=== PATIENT | female | born 1950 | race Caucasian/White ===

== ENCOUNTER 2023-10-25 15:47 | Outpatient (CLI) | payer MEDICARE, SELFPAY ==
--- NOTE | 2023-10-25 13:15 | DI.RAD_ITS ---
Exam(s) XR STANDING ALIGNMENT EXAM: XR STANDING ALIGNMENT CLINICAL HISTORY: eval alignment pre-TKA. TECHNIQUE: 2D digital imaging was performed. Four images were obtained. COMPARISON: CR XR KNEE 3V LT from 12/22/2022 FINDINGS: BONES: The hips are well maintained. In the right knee there is [id number]-[id number] narrowing in the me dial femoral tibial joint space. Spurring is seen both medially and laterally. In the left knee the re is marked narrowing of the lateral femoral tibial joint. There osteophytes seen both medially and laterally. The ankles are well maintained.The right lower extremity is approximately 1 cm longer th an the left lower extremity. SOFT TISSUE: Normal. IMPRESSION: Osteoarthritis of the knees, left greater than right. DATA REPOSITORY: RADIATION DOSE DELIVERED:
== END 2023-10-25 15:48 | disposition home or self-care (01) ==
LOC: DIORS 15:48
PROVIDERS: PCP Nurse Practitioner Family; Referring Provider Nurse Practitioner Family; Visit Provider Student in an Organized Health Care Education/Training Program
DX: M17.12 Unilateral primary osteoarthritis, left knee (principal); M21.062 Valgus deformity, not elsewhere classified, left knee
CPT/HCPCS: 99204; 77073

== ENCOUNTER 2023-11-19 01:42 | Outpatient (CLI) | payer MEDICARE, SELFPAY ==
[2023-11-19 12:26] LABS: HCT 45.3 % (36.0-46.0); HGB 15.1 g/dL (11.2-15.7); MCHC 33.3 % (32.0-36.0); MCV 90 fL (80-95); MPV 9.2 fL (8.0-11.0); Platelet Count 368 10^3/uL (130-400); RBC 5.03 10^6/uL (3.93-5.22); RDW 13.6 % (11.7-14.6); WBC 8.08 10^3/uL (4.4-10.8)
[2023-11-19 13:21] LABS: Anion Gap 7.9 mmol/L (3-11); BUN 24 mg/dL (7-18); CO2 30.1 mmol/L (21.0-32.0); CREATININE 1.2 mg/dL (0.55-1.02); Calcium 10.1 mg/dL (8.5-10.1); Chloride 102 mmol/L (98-107); Estimated GFR 47.21 (mL/min/1.73m2); Glucose 127 mg/dL (74-106); Potassium 3.9 mmol/L (3.5-5.1); Sodium 140 mmol/L (136-145)
== END 2023-11-19 01:43 | disposition home or self-care (01) ==
LOC: LBO 01:42
PROVIDERS: PCP Nurse Practitioner Family; Visit Provider Student in an Organized Health Care Education/Training Program
DX: M21.062 Valgus deformity, not elsewhere classified, left knee (principal); M17.12 Unilateral primary osteoarthritis, left knee; Z01.818 Encounter for other preprocedural examination
CPT/HCPCS: 36415; 80048; 85027

== ENCOUNTER 2023-11-30 07:28 | Observation (INO) | payer MEDICARE, SELFPAY ==
[2023-11-30] VITALS (55 sets, daily range): BP systolic 99–176; BP diastolic 42–101; PULSE 49–76; RESP 12–22; TEMP 25.9–36.5; O2SAT 94–100; BMI 42.3
[2023-11-30] MEDS: Celecoxib 200 MG CAP 400 MG PO (07:49)
[2023-11-30] MEDS: Acetaminophen 500 MG TAB 1000 MG PO ×3 (07:49→20:56)
[2023-11-30] MEDS: Gabapentin 300 MG CAP PO ×2 (07:49→20:56)
--- NOTE | 2023-11-30 08:11 | W.ANESPRE ---
General Info Date of Service Date Performed: 11/30/23 Height: 5 ft 4 in Weight: 111.9 kg Body Mass Index (BMI): 42.3 Surgical Procedure: Operation Date: 11/30/23 09:10 Proposed Procedure Side Surgeon p Knee Total Arthroplasty w/OrthAlign Left Jamar Tucker MD Meds Allergies and Home Medications Allergies Allergy/AdvReac Type Severity Reaction Status Date / Time No Known Allergies Allergy Verified 11/30/23 07:28 Home Medication ?Medication ?Instructions ?Recorded chlorthalidone 25 mg tablet 25 mg PO DAILY 08/05/23 lisinopril 30 mg tablet 30 mg PO DAILY 08/05/23 lovastatin 20 mg tablet 20 mg PO DAILY 08/05/23 acetaminophen 650 mg 650 mg PO ONCE 11/30/23 tablet,extended release (Arthritis Pain Relief (acetaminophen) ER) Current Visit Medications: Current Medications Generic Name Dose Route Start Last Admin Trade Name Freq PRN Reason Stop Dose Admin Acetaminophen 1,000 mg 11/30/23 06:00 11/30/23 07:49 Acetaminophen 500 Mg Tab PO 11/30/23 23:59 1,000 mg PREOP KATHERIN Administration Acetaminophen 1,000 mg 11/30/23 08:30 Acetaminophen 500 Mg Tab PO 12/30/23 08:29 TID KATHERIN Aspirin 81 mg 11/30/23 08:30 Aspirin E.C. 81 Mg Tabec PO 12/30/23 08:29 BID KATHERIN Celecoxib 400 mg 11/30/23 06:00 11/30/23 07:49 Celecoxib 200 Mg Cap PO 11/30/23 23:59 400 mg PREOP KATHERIN Administration Celecoxib 200 mg 11/30/23 08:30 Celecoxib 200 Mg Cap PO 12/30/23 08:29 BID KATHERIN Dexamethasone 4 mg 11/30/23 08:30 Dexamethasone 4 Mg Tab PO 12/01/23 08:31 DAILY KATHERIN Docusate Sodium 100 mg 11/30/23 07:28 Docusate Sodium 100 Mg Cap PO 12/30/23 07:27 BID PRN PRN Constipation Gabapentin 300 mg 11/30/23 06:00 11/30/23 07:49 Gabapentin 300 Mg Cap PO 11/30/23 23:59 300 mg PREOP KATHERIN Administration Hydromorphone HCl 0.5 mg 11/30/23 07:28 Hydromorphone 2 Mg/Ml Syr IVP 12/30/23 07:27 Q2H PRN PRN Ringer's Solution 1,000 mls @ 80 mls/hr 11/30/23 06:00 IV 11/30/23 23:59 INFUSION KATHERIN Cefazolin Sodium/Dextrose 2 gm in 50 mls @ 100 mls/hr 11/30/23 06:00 Ancef Duplex IVPB 11/30/23 23:59 PREOP KATHERIN Tranexamic Acid/Sodium Chloride 1,000 mg in 100 mls @ 600 mls/hr 11/30/23 06:00 IVPB 11/30/23 23:59 PREOP KATHERIN Cefazolin Sodium/Dextrose 1 gm in 50 mls @ 100 mls/hr 11/30/23 08:00 Ancef Duplex IVPB 12/01/23 00:29 Q8H KATHERIN IV Miscellaneous Supplies 1 each 11/30/23 06:00 Iv Access IV 11/30/23 23:59 DIRECTED KATHERIN Ondansetron HCl 4 mg 11/30/23 07:28 Ondansetron 4 Mg/2 Ml Vial IVP 12/30/23 07:27 Q6H PRN PRN Nausea Oxycodone HCl 0 mg 11/30/23 07:28 Oxycodone 5 Mg Tab PO 12/30/23 07:27 Q3H PRN PRN Pain Pantoprazole Sodium 40 mg 11/30/23 07:30 Pantoprazole 40 Mg Tabcr PO 12/30/23 07:29 DAILY@0730 KATHERIN Polyethylene Glycol 17 gm 11/30/23 07:28 Polyethylene Glycol 3350 17 Gm Packet PO 12/30/23 07:27 BID PRN PRN Constipation Sodium Chloride 0 ml 11/30/23 06:00 Normal Saline Flush 10 Ml Syr IV 11/30/23 23:59 PRN PRN Sodium Chloride 0 ml 11/30/23 06:00 Normal Saline 10 Ml Vial IJ 11/30/23 23:59 DIRECTED PRN Sterile Water 0 ml 11/30/23 06:00 Water,Injection,Sterile 10 Ml Vial IJ 11/30/23 23:59 DIRECTED PRN PFSH Active Problems Active Problems: Problem Status Onset Code 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 Unilateral primary osteoarthritis, left knee Acute M17.12 Obesity Chronic E66.9 Hyperlipidemia Acute E78.5 Medical History Medical History History of echocardiogram Hypertensive disorder Chronic constipation Surgical History Surgical History Status post hysterectomy History of arthroscopic knee surgery Left Tobacco Smoking/Tobacco Use Status: Former Tobacco Use Alcohol Alcohol Intake: current Alcohol intake frequency: holidays/special occasions only Alcohol type: other Substance Use Substance use: Never Substance use type: does not use Details: alcohol: t-5, one beer Vital Signs and Lab Results Vital Signs Most Recent Vital Signs in EMR: Most Recent Vital Signs Temp Pulse Resp BP Pulse Ox 36.5 C 58 L 16 176/53 H 99 11/30/23 07:38 11/30/23 07:38 11/30/23 07:38 11/30/23 07:38 11/30/23 07:38 Lab Results Blood Type / Crossmatch: No Data to Display Complete Blood Count: White Blood Count 8.08 10^3/uL (4.4-10.8) 11/19/23 12:00 Red Blood Count 5.03 10^6/uL (3.93-5.22) 11/19/23 12:00 Hemoglobin 15.1 g/dL (11.2-15.7) 11/19/23 12:00 Hematocrit 45.3 % (36.0-46.0) 11/19/23 12:00 Platelet Count 368 10^3/uL (130-400) 11/19/23 12:00 Complete Metabolic Panel: Sodium 140 mmol/L (136-145) 11/19/23 12:00 Potassium 3.9 mmol/L (3.5-5.1) 11/19/23 12:00 Chloride 102 mmol/L (98-107) 11/19/23 12:00 Carbon Dioxide 30.1 mmol/L (21.0-32.0) 11/19/23 12:00 BUN 24 mg/dL (7-18) H 11/19/23 12:00 Creatinine 1.2 mg/dL (0.55-1.02) H 11/19/23 12:00 Est GFR (CKD-EPI 2020) 47.21 (mL/min/1.73m2) 11/19/23 12:00 Calcium 10.1 mg/dL (8.5-10.1) 11/19/23 12:00 Glucose 127 mg/dL (74-106) H 11/19/23 12:00 Liver Function Panel: No Data to Display Coagulation Panel: No Data to Display Cardiac Panel: No Data to Display Arterial Blood Gas: No Data to Display Venous Blood Gas: No Data to Display Pancreas Panel: No Data to Display Thyroid Panel: No Data to Display Infectious Disease: No Data to Display Blood Cultures: No Data to Display Toxicology Panel: No Data to Display Anesthesia Assessment and Plan Anesthesia History Personal History: No History of Anesthesia Complications Family History: No Family History of Anesthesia Complications Exercise Tolerance Exercise Tolerance: Metabolic Equivalents>4 Pertinent Negatives Pertinent Negatives: No Symptoms of GERD, No Major Cardiovascular Symptoms or Complaints, No Major Pulmonary Symptoms or Complaints and No History of CVA/TIA Cardiac & Pulmonary Exam Cardiac Exam: Normal S1/S2 Heart Sounds Pulmonary Exam: Clear Bilateral Breath Sounds Implantable Cardiac Device Does patient have a Pacemaker or an ICD?: No Airway Exam Known Difficult Airway: No Mallampati Class: 1 Mouth Opening: Normal (> 3cm) Thyromental Distance: Greater than 3 cm Neck Range of Motion: Full ROM Neck Circumference: Normal Teeth Condition: Removable Dentures/Plates Upper and Removable Dentures/Plates Lower ASA Classification ASA Score: ASA 3 Emergency Case?: No NPO Status NPO Status: NPO Clears >2 hours, Solids >8 hours Anesthesia Plan Resuscitation Status: Full Code Anesthesia Technique: Spinal Anesthesia Airway Planned: Natural Airway Pain Management: Surgeon and patient request nerve block Monitors Used: Standard Monitors
[2023-11-30] MEDS: Lactated Ringers 1,000 ML 80 ML IV (08:15)
--- NOTE | 2023-11-30 09:16 | ROE_ITS ---
Date of service: 11/30/23 Time of Service: 09:16 Operative Note Operative Note DATE OF PROCEDURE: 11/30/23 PRE-OP DIAGNOSIS: Left Knee Osteoarthritis POST-OP DIAGNOSIS: same PROCEDURE: Left Total Knee Replacement with Intraoperative Navigation SURGEON: Jamar Tucker CERTIFIED NURSING ASSISTANT INSTRUCTOR: Edith Gasca ANESTHESIA TYPE: Spinal Refer to Anesthesia Record ESTIMATED BLOOD LOSS: 150 PATHOLOGY: none sent TOURNIQUET TIME: 0 COMPLICATIONS: None Patient was transported to: PACU Patient's condition: stable Implants: 1. Depuy Attune Cementless Cruciate Retaining Femoral Component, Size 5 2. Depuy Attune Cementless Fixed Bearing Tibial Component, Size 4 3. Depuy Attune 5x8 CR/FB Poly 4. Depuy Attune Patellar Component, Size 35 Indications: I have seen Olya in clinic for symptoms of LEFT knee arthritis, confirmed with radiographic findings. Olya has exhausted nonoperative methods and was having significant limitations in daily function and desired better function and less pain. I discussed the technical details of a knee replacement. I explained the risks of the procedure to include, but not limited to, bleeding, infection, pain, stiffness, fracture, damage to nerves and vessels, damage to muscles and tendons, loosening, need for repeat procedure, blood clot and cardiopulmonary demise. Despite these risks, Petrona elected to proceed. Findings: There was significant signs of arthritis throughout the knee involving all 3 compartments with a valgus deformity. Procedure Description: Olya was greeted in the preoperative holding area where the correct side was identified and marked. The consent was reviewed with the patient and signed. The history and physical was updated. All questions were answered. Preoperative mediacations were administered: Acetaminophen 1000mg, Celebrex 400mg, and Gabapentin 300mg. An adductor canal block was then administered by the anesthesia team in the PACU. She was taken back to the operating room. A spinal anesthestic was then administered. The patient was placed into the supine position on the operating room table. A nonsterile tourniquet was placed high onto the leg. Posts were placed for positioning during the procedure. All bony prominences were well padded. Prophylactic antibiotics in the form of Cefazolin were administered. 1g of Tranxemic Acid was given intravenously within 30 minutes of incision. The left leg was then prepped with Chloraprep and draped in a standard fashion with impervious stockinette. A second prep with Chloraprep was performed prior to application of Iodine impregnated skin protection. A timeout to confirm correct identity, side and site, procedure, allergies, anesthesia, and medical concerns was performed. With the knee in some flexion, a midline incision was made overlying the knee. Full thickness skin flaps were raised once the extensor mechanism was encountered. These were raised medially and laterally. Any bleeding was controlled with electrocautery. Once the extensor mechanism was fully exposed, a medial parapatellar arthrotomy was performed in a flexed position. All bleeding from the arthrotomy and the geniculate arteries was coagulated. A medial subperiosteal peel was performed with electrocautery to the midcoronal plane. The fat pad was removed while keeping the patellar tendon protected. The anterior distal femur synovium was removed for later visualization. The ACL and PCL were resected and the anterior horn of the lateral meniscus was transected. The knee was then flexed with the patella everted. Large osteophytes from the tibia were removed. Large osteophytes from the femur were removed. A single starting pin was then placed 1cm anterior to the PCL insertion and the notch in the direction of the femoral head. The OrthoAlign device was applied over the pin. It was oriented to be in line with the epicondylar axis and the trochlear groove. It was then pinned into place. The navigation computer was then turned on and calibrated. The distal femur cut was set at 0 degrees varus and 3.5 degrees flexion. The distal femur cutting guide then was positioned for a 9mm cut. The distal femur was cut with an oscillating saw while protecting the soft tissues. The tibia was then addressed. The OrthoAlign device was placed over the tibial tubercle and medial tibia and secured into position. Once again, OrthoAlign was calibrated and then set for a 0 degree varus cut and 5 degrees of posterior slope. With this locked into position, the cut thickness stylus was used to a ssess cut thickness. The lateral side, most involved side, was set for a 4mm cut. This was then held in position and pinned into place with 2 additional pins and a cross pin for stability. The medial and lateral collateral ligaments were protected and the cut was performed. With this completed, it was assessed and noted to be of appropriate dimensions. The guide and OrthoAlign was removed. A spacer block was inserted and the knee was brought into extension to ensure enough space was present. . The Orthoalign gap balancing device was then placed in extension. This was used to ensure that the ligaments were properly balanced with up to 2 to 3 mm laxity laterally compared medially. The extension gap was measured as 18mm. The knee was then brought into 90 degrees of flexion and the ligament search marketing specialist was once again placed. Under the same amount of force the flexion gap was measured. The Attune specific jig was placed and the flexion gap was made to match the extension gap. The femur was then sized as a size 5. The 4-in-1 cutting guide was the placed. An divya wing was used to confirm appropriate position of the anterior cut to avoid notching. This cutting guide was ensured to be flush on the cut surface and then pinned into place with headed pins. While protecting the soft tissues, quad tendon, and collateral ligaments, the anterior and posterior cuts were performed with a saw. The central two pins were removed and the posterior and anterior chamfers were cut next. The notch-cutting guide was placed. This was pinned to lateralize the femoral component as much as possible while keeping it flush on the cut surface. This was then pinned into position. A saw was used to make the notch cut. A rasp smoothed the cut surfaces. The medial and lateral menisci were removed. A trial femoral component was then inserted, impacted down to the cut surfaces, and the lug holes were drilled. A provisional trial tibial component was placed and the knee was brought through range of motion. The polyethylene was trialed until there was good flexion and extension with excellent stability to the medial and lateral collaterals. The patella was tracking without thumbs. A size 8mm polyethylene component provided the best range of motion and stability with less than 2mm gapping with medial and lateral stress and full extension without significant hyperextension. The tibial cut surface was fully exposed. The tibia was then sized as a 4. The tibia had been previously marked during trialing to correspond to the center of the tibial component to help with rotation. The trial was aligned to this mackenzie, approximately rotated to the medial 1/3rd of the tibial tubercle. The trial was pinned into place. The tibia was prepared with a reamer and a keel punch and lug holes. The knee was then brought into extension and the patella was measured as 25mm. Using the patellar clamp and cut guide, this was resected to a flat surface with at least 13mm of thickness remaining. The size 35 patella fit the best. This was oriented and then clamped into position. The lugs were drilled. The trial components were removed. The final components were opened on the back table. The periosteal and capsular tissues, especially posteriorly, around the knee were then systematically injected with a periarticular cocktail consisting of 246mg of Ropivacaine, 0.5mg of Epinephrine, 0.08mg of Clonidine, and 30mg of Ketorolac, diluted to 100cc. On the back table, with the implants opened, the cement was mixed. One batch of high viscosity cement was prepared with vacuum assistance. After the cement was ready a small amount was placed on the cut surface of the patella and the patellar button was clamped into position and held. While the cement was harde emily, the cementless knee components were placed. Starting with the tibial component, the tibia was subluxed anteriorly and the lug holes of the component were lined up. The tibia was then impacted with an impactor and mallet until the tibial component was in contact with the tibia. Then, the femoral component was inserted. The lug holes were aligned and the component was impacted into position. The final polyethylene component was inserted. The knee was irrigated with Surgiphor Betadine solution. This was allowed to sit in the knee for 3 minutes and then it was thoroughly irrigated out with saline. After the cement had finally cured, approximately 15min, the clamp was removed from the patella and the knee was taken through range of motion. The patella was tracking with a no-thumbs technique. The capsule was then reapproximated with a No. 1 Vicryl at multiple locations. The capsule was finally closed with a No. 2 Stratafix, barbed suture. Deep tissues were then reapproximated with 0 Vicryl and 2-0 Vicryl. The skin was closed with a running 3-0 Monocryl in a subcuticular fashion. This was reinforced with skin glue. A Mepilex silver dressing was applied along with a [id number] SENG wrap. A CryoCuff was applied. Olya was transferred to the hospital bed without difficulty an suffering no apparent complication. Olya has a good prognosis. Physical therapy will start today and without restrictions, weight-bearing as tolerated. Aspirin 81mg BID will be used for DVT prophylaxis.
[2023-11-30] MEDS: ceFAZolin 2 GM/50 ML BAG IVPB (09:23)
[2023-11-30] MEDS: TRANEXAMIC ACID/SOD. CHL. 1,000 MG/100 ML BAG 600 MG IVPB (09:27)
--- NOTE | 2023-11-30 09:46 | W.ANESNERVE ---
Nerve Block Single Injection Procedure Date and Time Date Performed: 11/30/23 Procedure Start: 08:40 Location Where Procedure Performed Procedure Location: Day Surgery Unit Reason Performed: Postoperative Analgesia Requesting Provider: Jamar Tucker Timeout Performed Timeout Performed: Yes Monitoring Used ECG, Blood Pressure, SpO2 and See EMR for corresponding vital signs Sterility Sterility: Hand Hygiene, Surgical Cap, Surgical Mask, Sterile Gloves and Chlorhexidine Sedation Given During Procedure Sedation Given (Indicate Dose Given): No Sedation given Patient Mental Status Patient Mental Status: Awake Nerve Block 1st Nerve Block: Laterality: Left Block Type: Adductor Canal Ultrasound Image Saved?: Yes Needle / Catheter Used: 120mm SonoPlex II Local Anesthetic Bolus (Indicate Dose Given): Lidocaine used for local infiltration of skin, Injected in 3-5ml increments after negative blood aspiration, Bupivacaine 0.25% Dose:: 10ml and Exparel Dose:: 10ml Additives (Indicate Dose Given): None Ultrasound: Sterile probe cover and gel used Nerve Stimulator: Not Used Paresthesia: None Procedure Tolerated: No Complications and Patient tolerated well Procedure Outcome: Successful Performed By: John Wells
[2023-11-30] MEDS: ePHEDrine 25 MG/5 ML Syringe IVP ×2 (11:57→12:11)
--- NOTE | 2023-11-30 12:43 | W.ANESPOSTOP ---
Postoperative Evaluation Date, Time and Location Date Performed: 11/30/23 Time Performed: 12:11 Patient Location: PACU Vital Signs Most Recent Imported Vital Signs: Most Recent Vital Signs Temp Pulse Resp BP Pulse Ox 36.4 C L 54 L 17 100/46 L 100 11/30/23 12:32 11/30/23 12:11 11/30/23 12:15 11/30/23 12:11 11/30/23 12:15 Pain Score Most Recent Pain Score: Most Recent Pain Score Pain Level 0 11/30/23 12:32 Assessment Mental Status: Awake (Alert & Oriented to Patient Baseline) Airway and Respiratory Function: Patent airway with normal (patient baseline) respiratory exam Cardiovascular Function: Hemodynamically Stable Hydration Status: Adequately Hydrated Nausea & Vomiting: No Nausea or Vomiting Pain: Pt. Denies Any Pain Peripheral Nerve Block: Regional nerve block not resolved at time of post operative discharge
--- NOTE | 2023-11-30 15:30 | PT.INIE ---
PT Notes Visit Reasons: Left knee DJD Physical Therapy Day Surgery Initial Evaluation Date: 11/30/2023 Referring Doctor: Dr. Tucker PT Orders: PT CONSULT: Assessment for discharge status post Ortho surgery Precautions: Weightbearing as tolerated left lower extremity Patient Profile/Admitting Diagnosis: Patient is a 73-year-old female admitted s/p elective left TKA secondary to OA on 11/30/2023. Postop uncomplicated. PMHX: HTN, constipation, hysterectomy, left knee arthroscopy Social History/Home Situation: Lives alone in a home with 4 steps to enter with 2 rails. She is independent with ADLs and ambulation without a device. Positive drives. Her son is supportive. Equipment Owned/DME: Patient has FWW at home she reports that her sons and declines to have a walker of her own Subjective: Patient reports apprehension regarding getting out of bed and standing on her leg for the first time. With encouragement from her nurse she is agreeable to participate in out of bed assessment. Objective: General Observation: Semireclined in bed with Cryo/Cuff in place to left knee IV left upper extremity, TEDS to RLE and Major wrap to left lower extremity Mental Status: A+ O x 4 Pain: 3/10 rest; 4/10 after ambulation and ROM ROM: Right Upper Extremity: WNL Left Upper Extremity: WNL Right Lower Extremity: WNL Left Lower Extremity: Hip and ankle WFL, Knee: 5-94 degrees Strength: Right Upper Extremity:5/5 Left Upper Extremity: 5/5 Right Lower Extremity:5/5 Left Lower Extremity: hip 3-/5, knee 3-/5, ankle 3/5; able to elicit quad set , (+) quad lag with short Range SLR Sensation: intact LLE except dorsum of left foot Bed Mobility/Transfers: Supine to sit min A Sit to standCGA with cues for hand placement Stand to sit CGA with cues for hand placement Bed to chair CGA with FWW Gait: ambulate with FWW CGA and cues for sequence 3 point gait pattern FWW, Left, right , Stairs: Unable Balance: Static Sitting:Normal Dynamic Sitting:good Static Standing: Fair + with FWW Dynamic Standing: Fair with FWW Special Tests: Mobility Limitations Standardized Measure [facility]-PAC 6 clicks Basic Mobility Inpatient Short Form: Raw Score:18 CMS Score: 46.58% disability Informed Consent/Education: Patient instructed in purpose of PT consult. Packet containing TKA exercise protocol has been given to patient. Education and training on initial set of exercises that can be done at home have been completed with patient. Assessment: Patient presents with clinical signs and symptoms consistent with current/admitting diagnoses that have resulted to mobility limitations, gait instability, generalized weakness, and impairment of motor control as demonstrated by the following impairment level findings: 1. Decreased strength to left knee major muscle groups 2. Impaired standing balance 3. Limitation of joint range of motion in left knee Impairments are contributing to the following functional limitations: 1. Inability to safely ambulate without assistive device 2. Increase completion time for mobility ADL performance 3. Increased fall risk Patient is assessed as a moderate complexity based on the following: History: 73-year-old female with impairment level findings, functional limitations, and past medical history as indicated above Examination: Demonstrable impairment in strength, balance, and mobility level with underlying impairments and functional limitations as documented above Presentation: stable Decision Making: low Goals: 1. Transfers with FWW supervision 2. ambulate with FWW supervision >50 feet 3. 4 stairs with 2 rails supervision 4. Independent HEP Plan of Care/Treatment Plan: PT evaluation and 1-2 treatment session only for functional mobility training using recommended AD and for HEP instruction. DISCHARGE RECOMMENDATIONS: Home with outpatient PT as scheduled TREATMENT CODE/TIME: 74792, [id number], [id number] Thank you for the opportunity to participate in the care of this patient. Please sign an return this page within 30 days if you agree with the above POC. Thank you! Physician Signature Date [facility]
[2023-11-30] MEDS: ceFAZolin 1 GM/50 ML BAG IVPB (18:03)
[2023-11-30] MEDS: Celecoxib 200 MG CAP PO (20:56)
[2023-11-30] MEDS: Aspirin E.C. 81 MG TABEC PO (20:56)
[2023-12-01] MEDS: ceFAZolin 1 GM/50 ML BAG IVPB ×2 (01:49→09:49)
[2023-12-01 03:23] VITALS: BP 109/65; PULSE 57; RESP 17; TEMP 35.5; O2SAT 97
[2023-12-01] MEDS: Pantoprazole 40 MG TABCR PO (07:48)
[2023-12-01] MEDS: Celecoxib 200 MG CAP PO (07:49)
[2023-12-01] MEDS: Chlorthalidone 25 MG TAB PO (07:49)
[2023-12-01] MEDS: Lisinopril 10 MG TAB 30 MG PO (07:50)
[2023-12-01] MEDS: Acetaminophen 500 MG TAB 1000 MG PO (07:51)
[2023-12-01] MEDS: Lovastatin 20 MG TAB PO (07:51)
[2023-12-01] MEDS: Docusate Sodium 100 MG CAP PO (07:52)
[2023-12-01] MEDS: Dexamethasone 4 MG TAB PO (07:52)
[2023-12-01] MEDS: Aspirin E.C. 81 MG TABEC PO (07:52)
[2023-12-01 08:17] VITALS: BP 92/58; PULSE 53; RESP 17; TEMP 35.5; O2SAT 95
--- NOTE | 2023-12-01 08:41 | PDOC.CMDIS ---
Date of service: 12/01/23 Time of Service: 08:41 LACE Index Scoring Tool Questions: Length of Stay (in days): 1 Was the patient admitted via the E.D.?: No E.D. Visits: 0 Answers: Total Score: 1 Risk of Readmission: Low Risk Care Management Discharge Plan Reason for Hospitalization: Left DJD Discharge Plan: Olya is discharged home via private vehicle with family. Pt will follow up with community providers, Ortho as scheduled and her discharge plan of care as instructed. Outpatient PT is recommended. No HH services are ordered. Patient/Family Education Needs: Review discharge instructions, limitations, medications and plan to follow up with community providers. Discuss ask me three. Services Needed at Discharge: Physical Therapy (Outpatient) SDOH Health Related Social Needs: No Data to Display
--- NOTE | 2023-12-01 09:42 | DSE_ITS ---
Date of service: 12/01/23 Time of Service: 09:42 DS: Diagnosis Discharge Diagnosis (1) Unilateral primary osteoarthritis, left knee: Status: Resolved Discharge Plan Disposition Patient Disposition: Home Condition: Good Discharge Details Reason For Visit: Left knee DJD Admit Date/Time: 11/30/23 07:28 Admit Provider: Jamar Tucker Attending Provider: Jamar Tucker Primary Care Provider: Armen Orellana Hospital Course Hospital Course: Patient was admitted to the medical/surgical floor following the procedure. The surgery was tolerated well without any notable medical, surgical, or anesthetic complications. Mobilization began postoperatively. She was voiding spontaneously. Vitals were stable. Physical therapy worked with the patient and was cleared for discharge home. No acute medical issues. Pain was controlled on oral regimen. Home Meds and New Rx's Prescriptions: New celecoxib [Celebrex] 200 mg capsule 200 mg PO BID PRNQty: 60 0RF Rx Instructions: Take one tablet twice daily for pain and inflammation aspirin 81 mg tablet,delayed release (DR/EC) 81 mg PO BID 30 Days Qty: 60 0RF acetaminophen 500 mg tablet 1,000 mg PO Q8H PRN Qty: 90 0RF Rx Instructions: Take two tablets up to every 8 hours as needed for pain dexamethasone 4 mg tablet 4 mg PO DAILY Qty: 1 0RF Rx Instructions: Take one tablet once daily for one day docusate sodium [Colace] 100 mg capsule 100 mg PO BID Qty: 30 0RF pantoprazole 40 mg tablet,delayed release (DR/EC) 40 mg PO DAILY 14 Days Qty: 14 0RF gabapentin 300 mg capsule 300 mg PO QHS Qty: 14 0RF Rx Instructions: Take one tablet at bedtime oxycodone 5 mg tablet 5 mg PO Q4H PRNQty: 18 0RF Rx Instructions: Take one tablet up to every 4 hours as needed for severe postoperative pain Continued chlorthalidone 25 mg tablet 25 mg PO DAILY lisinopril 30 mg tablet 30 mg PO DAILY lovastatin 20 mg tablet 20 mg PO DAILY Discontinued acetaminophen [Arthritis Pain Relief (acetam)] 650 mg tablet extended release 650 mg PO ONCE Patient Comments: pt. reports taking 1300mg Discharge Instructions Additional Instructions: Total Knee Discharge Instructions Activity: The most important activity is to walk and to work on gentle motion (both flexion and extension). You should try to take short walks a few times a day. It is important that when resting you work on keeping the knee straight. Avoid putting a pillow behind the knee as this will encourage flexion. Work on range of motion exercises as provided by Physical Therapy. - Start outpatient physical therapy within 2 weeks. - You should wear the SANYA hose on both legs for 2 weeks. You may remove these at night. You may also use any compression sock in place of the SANYA hose. - Utilize [employer] to review exercises, see videos on exercises and obtain basic information pertaining to your surgery and your recovery. Dressing: Remove the Major wrap by 2 days after your surgery and put on the SANYA stocking given to you from the hospital. Keep the surgical dressing (underneath the MAJOR wrap) in place for at least one week. After the first week it may be removed and replaced with light gauze and tape or nothing. The wound and dressing may get wet after 3 days but avoid soaking the dressing or otherwise it will need to be changed. Many people prefer covering the dressing with cling wrap (saran wrap) to minimize it from getting soaked. If it gets wet, just pat dry. If it starts to peel off then it will need to be changed. Medications: - You should take Tylenol and anti-inflammatory Celebrex as your primary pain control medications. If the Celebrex is too expensive or not covered, please call the office for another alternative (Advil/Ibuprofen or Naproxen/Aleve) - You have been prescribed a stronger pain medication Oxycodone for breakthrough pain, take as needed as prescribed. - You have also been prescribed a stomach acid reduction agent Pantoprozole to help reduce stomach acid and reflux. - You have been prescribed Gabapentin to take at night for restlessness and nerve pain. - You will be taking Aspirin 81mg twice a day for DVT prevention unless instructed otherwise. - You have also been prescribed Decadron to take to control post-operative nausea and pain. You will start this tomorrow. - If you have constipation you should take Colace (which has been prescribed) or Miralax (which is available [id number]). It takes most people 3-4 days to have a bowel movement. Follow-up: 2 weeks If you have any acute concerns or questions, please do not hesitate to contact the office at [phone]. You may contact Dr. Tucker with any questions after hours through the hospital at [phone] or on his cell phone at [phone]. Referrals: Jamar Tucker MD [ [facility] STAFF PHYSICIAN] - Activity:: Activity as Tolerated Equipment/Supplies:: Walker Diet:: As Tolerated Discharge Orders Discharge Orders: Discharge Order (Routine); Ordered 12/01/23 Ordered By: Jamar Tucker DS: Summary Time Spent with Patient providing and/or coordinating discharge services: Less than 30 minutes Status at Discharge Functional status at discharge: uses cane/walker Overall status at discharge: patient is progressing back to baseline Mental Status: mental status grossly normal Speech and Movement: speech and movement normal Mood: congruent mood Affect: normal affect Quality:SDOH Health Related Social Needs: No Data to Display Exam Narrative Exam Narrative: Sitting up in the chair. No acute distress. Alert and orient x 3. Evaluation of the left leg shows a clean dry and intact dressing. She is able to actively extend the left knee from a flexed position although with some weakness she extends to about 5 degrees of extension. No pain with range of motion passively. Intact ankle dorsiflexion, ankle plantarflexion, great toe extension, great toe flexion. Sensation intact to light touch over the deep and superficial nerve. Psych Mental Status: mental status grossly normal Speech and Movement: speech and movement normal Mood: congruent mood Affect: normal affect DS: Data Vitals/I&O Vitals and I&O: Vital Signs Temperature 97.7 F 11/30/23 07:38 Pulse 58 L 11/30/23 07:38 Pulse Rhythm Regular 11/30/23 07:38 Respiratory Rate 16 11/30/23 07:38 Respiratory Depth Normal 11/30/23 07:38 Blood Pressure 176/53 H 11/30/23 07:38 Pulse Oximetry 99 11/30/23 07:38 Oxygen Delivery Method Room Air 11/30/23 07:38 Oxygen Flow Rate 0 11/30/23 07:38 Pain Level 0 11/30/23 07:38 Intake & Output 11/29/23 11/29/23 11/30/23 11:59 23:59 11:59 Weight 246 lb 11.156 oz PFSH All Active Problems (Updated 11/30/23 @ 13:37 by Naveen Palm RN) History of total left knee replacement (Acute 11/30/23) Obesity (Chronic) Hyperlipidemia (Acute) Medical History (Updated 11/30/23 @ 13:37 by Naveen Palm RN) History of echocardiogram Hypertensive disorder Chronic constipation Surgical History (Updated 11/30/23 @ 13:37 by Naveen Palm RN) Status post hysterectomy History of arthroscopic knee surgery Left Social History Smoking/Tobacco Use Status: Former Tobacco Use Quit Date: 04/05/89 Smoking risk assessment performed?: Yes Alcohol Intake: current Alcohol Intake frequency: holidays/special occasions only Alcohol type: other Drug use: Never Substance use type: does not use Details: alcohol: t-5, one beer Housing: house Do you feel safe at home: Yes Do you feel safe in your relationship?: Yes Additional Social history: [employer]
--- NOTE | 2023-12-01 09:53 | PT.INTREAT ---
PT Notes Visit Reasons: Left knee DJD Inpatient Physical Therapy Treatment Note [facility] Date: 12/01/2023 PRECAUTIONS: Activity as tolerated SUBJECTIVE: Patient reports minimal sleep last night. She reports she used her Cryo/Cuff throughout the night. OBJECTIVE: Alert oriented female motivated to return home agreeable to participate. Cryo/Cuff in place ? PAIN: 3/10 left knee VITALS: ?92/58 asymptomatic Therapeutic Activities (51673h[]): Direct one-on-one instruction in dynamic activities to improve functional performance. ? BED MOBILITY/TRANSFERS? Supine-sit: Independent ? Sit-supine: Independent] ? Sit-stand: [Independent]? Stand-sit: [Independent] ? Bed-Chair: Independent with FWW] ? Chair-bed: Independent with FWW Provided skilled cues and instruction on performance and technique throughout. Gait Training (11333k8): Direct one-on-one instruction and skilled instruction in: [] employing an assistive device [] modified weight-bearing status [] movement sequencing [x] turning and movement with proper form [] Provided verbal cues for equipment management and technique [] Provided instruction in gait pattern [x] Patient education regarding pacing and breathing techniques to maximize activity tolerance? GAIT? Assistive Device: FWW ? Weight bearing: WBAT Assist: Supervision? Distance:?200 feet? Deviation: Slight lateral weight shift reduced knee flexion left,? STAIRS: 2 stairs with 2 rails supervision? Therapeutic Exercises (65521e4): Direct one-on-one instruction in therapeutic exercises to develop strength, endurance, range of motion and flexibility. ? Exercises 10 reps ? supine QS, heelslides, ankle pumps, SLR through shortened ROM seated LAQ, heelslide ? Provided skilled instruction in proper exercise performance Provided skilled manual cues to facilitate proper muscle recruitment and/or form: [] ASSESSMENT: Patient demonstrates safe technique with front wheel walker for functional transfers, and ambulation. She is supervised on the stairs with 2 rails. She demonstrates impaired knee flexion during ambulation. Range of motion left knee 0?95 AAROM in sitting. She has a front wheeled walker at home. Patient demonstrated all TherEX per TKA protocol. She is safe for discharge when medically appropriate. PLAN: cont PT for strengthening and functional mobility until discharge to home TREATMENT CODE/TIME: 94377/95177 ([id number]) DISCHARGE RECOMMENDATION: Home with outpatient PT as scheduled
== END 2023-12-01 11:25 | disposition home or self-care (01) ==
LOC: SUR 08:58 → MS 12:53
PROVIDERS: Admitting Provider Student in an Organized Health Care Education/Training Program; PCP Nurse Practitioner Family; Visit Provider Student in an Organized Health Care Education/Training Program
PROC: (CPT 27447; principal; 2023-11-30 09:00)
DX: M17.12 Unilateral primary osteoarthritis, left knee (principal); E78.5 Hyperlipidemia, unspecified; E66.9 Obesity, unspecified; Z68.41 Body mass index [BMI] 40.0-44.9, adult
CPT/HCPCS: 20985; 27447; 76942; 97110; 97116; 97162; 97530; C1776; C9290; G0378; J0665; J0690; J1100; J2001; J2250; J2371; J2401; J2405; J2704; J8540

== ENCOUNTER 2023-12-13 15:31 | Outpatient (CLI) | payer MEDICARE, SELFPAY ==
--- NOTE | 2023-12-13 12:45 | DI.RAD_ITS ---
Exam(s) XR KNEE LT 1V XR STANDING ALIGNMENT EXAM: XR STANDING ALIGNMENT CLINICAL HISTORY: 1ST POST OP S/P L TKA. TECHNIQUE: 2D digital imaging was performed. Standing AP views were performed from the pelvis throu gh the ankles. COMPARISON: CR XR STANDING ALIGNMENT from 10/25/2023 CR XR KNEE LT 1V from 12/13/2023 FINDINGS: BONES: No acute fracture is present. No bony destructive lesion is seen. Leg length discrepancy: No significant overall leg length discrepancy. JOINTS: Knees: A left total knee prosthesis has placed. Alignment appears satisfactory. No surround ing bony lucencies. Moderate narrowing of the medial femoral tibial joint space of the right knee. The ankle joints are unremarkable. The hip joints show mild degenerative changes. SOFT TISSUE: Normal. IMPRESSION: Moderate degenerative changes medial femoral tibial joint space of the right knee. Status post place ment of left knee prosthesis.. No significant leg length discrepancy. DATA REPOSITORY: RADIATION DOSE DELIVERED:
== END 2023-12-13 15:32 | disposition home or self-care (01) ==
LOC: DIORS 15:31
PROVIDERS: PCP Nurse Practitioner Family; Referring Provider Nurse Practitioner Family; Visit Provider Student in an Organized Health Care Education/Training Program
DX: Z96.652 Presence of left artificial knee joint (principal); Z47.1 Aftercare following joint replacement surgery
CPT/HCPCS: 73560; 77073

== ENCOUNTER → 2024-01-10 13:49 | Outpatient (BNVA) | payer MEDICARE, SELFPAY | PROVIDERS: PCP Nurse Practitioner Family; Referring Provider Nurse Practitioner Family; Visit Provider Student in an Organized Health Care Education/Training Program | DX: Z47.1 Aftercare following joint replacement surgery (principal); Z96.652 Presence of left artificial knee joint | CPT/HCPCS: 99024 ==

== ENCOUNTER → 2024-02-21 10:54 | Outpatient (BNVA) | payer MEDICARE, SELFPAY | PROVIDERS: PCP Nurse Practitioner Family; Referring Provider Nurse Practitioner Family; Visit Provider Student in an Organized Health Care Education/Training Program | DX: S86.112D Strain of other muscle(s) and tendon(s) of posterior muscle group at lower leg level, left leg, subsequent encounter (principal); X58.XXXD Exposure to other specified factors, subsequent encounter; Z96.652 Presence of left artificial knee joint | CPT/HCPCS: 99213 ==

== ENCOUNTER → 2024-04-10 10:30 | Outpatient (BNVA) | payer MEDICARE, SELFPAY | PROVIDERS: PCP Nurse Practitioner Family; Referring Provider Nurse Practitioner Family; Visit Provider Student in an Organized Health Care Education/Training Program | DX: M54.16 Radiculopathy, lumbar region (principal); S86.112D Strain of other muscle(s) and tendon(s) of posterior muscle group at lower leg level, left leg, subsequent encounter; X58.XXXD Exposure to other specified factors, subsequent encounter | CPT/HCPCS: 99215 ==

== ENCOUNTER 2024-05-03 02:30 | Outpatient (CLI) | payer MEDICARE, SELFPAY ==
--- NOTE | 2024-05-03 12:50 | DI.MRI_ITS ---
Exam(s) MR LUMBAR SPINE WO EXAM: MR LUMBAR SPINE WO CLINICAL HISTORY: LOW BACK PAIN, LT LUMBAR RADICULOPATHY,M54.16. TECHNIQUE: Multiplanar multisequence MRI of the Lumbar spine was performed. COMPARISON: No exams were available for comparison FINDINGS: Bones: The last intervertebral disc space is designated the L5/S1 level for the numbering purpose of this examination. Endplate osteophytes are seen at several levels of the lumbar spine. Alignment i s satisfactory. There are hemangioma seen in the T11 and L4 vertebral bodies. There are postsurgical changes of a prior left L5 laminectomy. Cord: The conus tip ends at the L1 level. It is of normal size and signal intensity. T12-L1: No disc herniations or bulges are present. No central spinal canal or neural foraminal stenos is. L1-2: No disc herniations or bulges are present. No central spinal canal or neural foraminal stenosis . L2-3: No disc herniations or bulges are present. No central spinal canal or neural foraminal stenosis . L3-4: There is a eccentric disc bulge laterally to the left. No significant central spinal canal fermin nosis is seen. There is mild left neural foraminal narrowing. No significant right neural foraminal stenosis is seen. L4-5: There is a mild diffuse disc bulge and a small central disc herniation. Facet arthropathy is p resent. Minimal narrowing of the central spinal canal is noted. Mild narrowing of the neural forame n is seen bilaterally, left greater than right. L5-S1: There is a mild diffuse disc bulge. There are degenerative changes of the facets. No signifi cant central spinal canal stenosis is present. No significant neural foraminal stenosis is seen. Soft tissues: The visualized SI joints and sacrum are well maintained. Bilateral renal cysts are seen . No follow-up is recommended. IMPRESSION: Multilevel degenerative changes in the lumbar spine. The findings do result in central spinal canal narrowing at L4-L5 and bilateral neural foraminal narrowing at this level. There is also mild narrow ing on the left at L3-L4. DATA REPOSITORY:
--- NOTE | 2024-05-03 13:50 | DI.MRI_ITS ---
Exam(s) MR LOWER EXTREMITY LT WO EXAM: MR LOWER EXTREMITY LT WO CLINICAL HISTORY: L LOWER LEG PAIN,STRAIN GASTROCENEMIUS MUSCLE LT LOW EXT,S86.112A TECHNIQUE: Multiplanar multisequence MRI was performed without intravenous contrast. COMPARISON: CR XR STANDING ALIGNMENT from 12/13/2023 FINDINGS: There is artifact from the patient's left total knee arthroplasty. BONES/JOINTS: Images about the knee are distorted secondary to the patient's total knee arthroplasty. Rounded areas are seen in the mid tibia which are isointense to the intramedullary fat on the T1 an d hypointense on the T2 weighted images. There is mild associated marrow edema. The cortex appears intact. No soft tissue mass is appreciated. The findings may represent a benign lesion such as a hemant ne infarct. MUSCULOTENDINOUS STRUCTURES: There is mild hyperintense signal seen on the T2 fat suppressed images i n both the medial and lateral gastrocnemius muscles. There is also mild increased signal seen in the adjacent soleus muscle. No intramuscular mass is seen. No abnormal fluid collection is seen within the muscles. There does appear to be very mild diffuse fatty atrophy of the muscles of the lower ex tremity. There is fusiform thickening of the midportion of the Achilles tendon which can be seen wit h a partial tear. SOFT TISSUES: Unremarkable. OTHER FINDINGS: None. IMPRESSION: 1. Mild hyperintense signal seen in both the medial lateral gastrocnemius muscle in the adjacent port ion of the soleus muscle. No intramuscular mass or fluid collection is seen. There is no distortion of the muscle fibers. This may represent a grade 1 muscle strain. 2. Fusiform thickening of the midportion of the Achilles tendon which can be seen with a partial tear . 3. Exam limited by artifact from the patient's total knee arthroplasty. DATA REPOSITORY:
== END 2024-05-03 02:50 ==
LOC: DI 02:30
PROVIDERS: PCP Nurse Practitioner Family; Visit Provider Student in an Organized Health Care Education/Training Program
DX: M54.16 Radiculopathy, lumbar region (principal); S86.112A Strain of other muscle(s) and tendon(s) of posterior muscle group at lower leg level, left leg, initial encounter; X58.XXXA Exposure to other specified factors, initial encounter
CPT/HCPCS: 72148; 73718

== ENCOUNTER → 2024-07-03 10:20 | Outpatient (BNVA) | payer MEDICARE, SELFPAY | PROVIDERS: PCP Nurse Practitioner Family; Referring Provider Nurse Practitioner Family; Visit Provider Student in an Organized Health Care Education/Training Program | DX: S86.112A Strain of other muscle(s) and tendon(s) of posterior muscle group at lower leg level, left leg, initial encounter (principal); X58.XXXA Exposure to other specified factors, initial encounter; Z96.652 Presence of left artificial knee joint | CPT/HCPCS: 99213 ==

== ENCOUNTER 2024-11-30 11:28 | Outpatient (CLI) | payer MEDICARE, SELFPAY ==
--- NOTE | 2024-11-30 10:00 | DI.RAD_ITS ---
Exam(s) XR KNEE LT 2V AP,LAT EXAM: XR KNEE LT 2V AP,LAT CLINICAL HISTORY: ANNUAL F/U L TKA. TECHNIQUE: 2D digital imaging was performed. Two images were obtained. AP and lateral views were obtained. COMPARISON: CR XR STANDING ALIGNMENT from 12/13/2023 CR XR KNEE LT 1V from 12/13/2023 FINDINGS: BONES: There are stable post operative changes of a left total knee arthroplasty present. No fracture or dislocation. JOINTS: The orthopedic hardware is in good position. No evidence of hardware loosening. SOFT TISSUE: Normal. IMPRESSION: Stable left total knee arthroplasty. DATA REPOSITORY: RADIATION DOSE DELIVERED:
== END 2024-11-30 11:29 | disposition home or self-care (01) ==
LOC: DIORS 11:28
PROVIDERS: PCP Nurse Practitioner Family; Referring Provider Nurse Practitioner Family; Visit Provider Student in an Organized Health Care Education/Training Program
DX: Z47.1 Aftercare following joint replacement surgery (principal); Z96.652 Presence of left artificial knee joint; M25.561 Pain in right knee
CPT/HCPCS: 99213; 73560

== ENCOUNTER 2024-12-29 08:05 | Day surgery (SDC) | payer MEDICARE, SELFPAY ==
[2024-12-29 08:34] VITALS: BP 146/72; PULSE 61; RESP 16; TEMP 36.3; O2SAT 98
[2024-12-29] MEDS: Tropicam./Phenyleph. (1/2.5%) 5 ML BTL OS ×2 (08:53→08:58)
--- NOTE | 2024-12-29 09:30 | ANES.PREOP_ITS ---
General Info Date of Service Date Performed: 12/29/24 Height: 5 ft 4 in Weight: 113.1 kg Body Mass Index (BMI): 42.7 Surgical Procedure: Operation Date: 12/29/24 10:40 Proposed Procedure Side Surgeon p Cataract Extraction with IOL Implant Left Jeramie Bridges MD Meds Allergies and Home Medications Allergies Allergy/AdvReac Type Severity Reaction Status Date / Time No Known Allergies Allergy Verified 12/29/24 08:59 Home Medication ?Medication ?Instructions ?Recorded chlorthalidone 25 mg tablet 25 mg PO DAILY 08/05/23 lisinopril 30 mg tablet 30 mg PO HS 08/05/23 lovastatin 20 mg tablet 20 mg PO HS 08/05/23 acetaminophen 500 mg tablet 1,000 mg (2 x 500 mg) PO Q 8H PRN 11/30/23 pain #90 tabs calcium carbonate (Calcium 600) 600 mg PO DAILY vitamin E 670 mg (1,000 unit) 670 mg PO DAILY 12/28/24 capsule Current Visit Medications: Current Medications Generic Name Dose Route Start Last Admin Trade Name Freq PRN Reason Stop Dose Admin Acetaminophen 1,000 mg 12/29/24 06:00 Acetaminophen 500 Mg Tab PO 01/28/25 05:59 Q4H PRN PRN Balanced Salt Solution 500 ml 12/29/24 06:00 Balanced Salt Soln.-Plus 500 Ml Bag OP 01/28/25 05:59 DIRECTED [facility] Miscellaneous Medication 0 ml 12/29/24 06:00 Prednisolone 1%, Moxifloxacin 0.5%, Bromfenac 0.09% 5.6ml Btl OS 01/28/25 05:59 DIRECTED KATHERIN Miscellaneous Medication 0 ml 12/29/24 06:00 12/29/24 08:58 Tropicam./Phenyleph. (1/2.5%) 5 Ml Btl OS 01/28/25 05:59 1 drp DIRECTED KATHERIN Administration Tetracaine HCl 0 ml 12/29/24 06:00 Tetracaine 0.5% 4 Ml Btl OS 01/28/25 05:59 DIRECTED KATHERIN PFSH Active Problems Active Problems: Problem Status Onset Code Posterior subcapsular age-related cataract of left eye Acute H25.042 Cortical age-related cataract, left eye Acute H25.012 Nuclear age-related cataract, left eye Acute H25.12 Left lumbar radiculopathy Acute M54.16 Strain of gastrocnemius muscle of left lower extremity Acute S86.112A History of total left knee replacement Acute 11/30/23 Z96.652 Obesity Chronic E66.9 Hyperlipidemia Acute E78.5 Medical History Medical History History of echocardiogram Hypertensive disorder Chronic constipation Surgical History Surgical History Hx of appendectomy H/O: hysterectomy History of back surgery Per H&P laminotomy Hx of total knee replacement Status post hysterectomy History of arthroscopic knee surgery Left Tobacco Smoking/Tobacco Use Status: Former Tobacco Use Passive smoking exposure: No Alcohol Alcohol Intake: current Alcohol intake frequency: holidays/special occasions only Alcohol type: other Substance Use Substance use: Never Substance use type: does not use Vital Signs and Lab Results Vital Signs Most Recent Vital Signs in EMR: Most Recent Vital Signs Temp Pulse Resp BP Pulse Ox 36.3 C L 61 16 146/72 H 98 12/29/24 08:34 12/29/24 08:34 12/29/24 08:34 12/29/24 08:34 12/29/24 08:34 Anesthesia Assessment and Plan Anesthesia History Personal History: No History of Anesthesia Complications Family History: No Family History of Anesthesia Complications Exercise Tolerance Exercise Tolerance: Metabolic Equivalents>4 Cardiac & Pulmonary Exam Cardiac Exam: Normal S1/S2 Heart Sounds Pulmonary Exam: Clear Bilateral Breath Sounds Implantable Cardiac Device Does patient have a Pacemaker or an ICD?: No Airway Exam Known Difficult Airway: No Mallampati Class: 1 Mouth Opening: Normal (> 3cm) Thyromental Distance: Greater than 3 cm Neck Range of Motion: Full ROM Neck Circumference: Normal Teeth Condition: Removable Dentures/Plates Upper and Removable Dentures/Plates Lower ASA Classification ASA Score: ASA 3 Emergency Case?: No NPO Status NPO Status: NPO Clears >2 hours, Solids >8 hours Anesthesia Plan Resuscitation Status: Full Code Anesthesia Technique: MAC Anesthesia Airway Planned: Natural Airway Monitors Used: Standard Monitors
[2024-12-29] MEDS: Povidone-Iodine Ophth 30 ML BTL (10:11)
[2024-12-29] MEDS: Tetracaine 0.5% 4 ML BTL OS (10:11)
[2024-12-29 10:14] VITALS: BMI 42.7
[2024-12-29] MEDS: Duovisc Viscoelastic System EACH 1 EACH (10:17)
[2024-12-29] MEDS: Phenylephrine/Lidocaine (15/10) MG/ML 1 ML VIAL (10:17)
[2024-12-29] MEDS: Balanced Salt Soln.-PLUS 500 ML BAG OP (10:17)
[2024-12-29] MEDS: Lidocaine 1% Pres-Free 5 ML VIAL (10:18)
[2024-12-29] MEDS: Moxifloxacin-PF 1 MG/ML VIAL (10:26)
[2024-12-29] MEDS: Prednisolone 1%, Moxifloxacin 0.5%, Bromfenac 0.09% 5.6ML BTL OS (10:30)
--- NOTE | 2024-12-29 10:36 | W.PM.DSUDISC ---
Date of service: 12/29/24 Discharge Plan Disposition Patient Disposition: Home Discharge Details Attending Provider: Jeramie Bridges Primary Care Provider: Armen Orellana Home Meds and New Rx's Prescriptions: No Action chlorthalidone 25 mg tablet 25 mg PO DAILY lisinopril 30 mg tablet 30 mg PO HS lovastatin 20 mg tablet 20 mg PO HS acetaminophen 500 mg tablet 1,000 mg PO Q8H PRN Qty: 90 0RF Rx Instructions: Take two tablets up to every 8 hours as needed for pain calcium carbonate [Calcium 600] 600 mg calcium (1,500 mg) tablet 600 mg PO DAILY vitamin E 670 mg (1,000 unit) capsule 670 mg PO DAILY Discharge Instructions Stand Alone Forms: DSU Post-Op CataractAdam (DSU) Discharge Orders Discharge Orders: Discharge Order (Routine); Ordered 12/29/24 Ordered By: Jeramie Bridges DS: Diagnosis Discharge Diagnosis (1) Posterior subcapsular age-related cataract of left eye: Status: Resolved (2) Cortical age-related cataract, left eye: Status: Resolved (3) Nuclear age-related cataract, left eye: Status: Resolved
[2024-12-29 10:37] VITALS: BP 119/72; PULSE 54; RESP 16; TEMP 36; O2SAT 98
--- NOTE | 2024-12-29 10:37 | W.PM.OP ---
Operative Note Operative Note PRE-OP DIAGNOSIS: Nuclear/cortical/posterior subcapsular cataract, left eye POST-OP DIAGNOSIS: same PROCEDURE: Cataract extraction using phacoemulsification with intraocular lens implant, left eye SURGEON: Jeramie Bridges ANESTHESIA TYPE: Local By Surgeon and MAC Refer to Anesthesia Record PATHOLOGY: none sent COMPLICATIONS: None Patient was transported to: same day Patient's condition: stable Implants: Teddy Clareon [id number] Indications: Progressive decreased vision due to cataract, left eye Procedure Description: CATARACT SURGERY OPERATIVE REPORT PREOPERATIVE DIAGNOSIS: Nuclear/cortical/posterior subcapsular cataract, left eye POSTOPERATIVE DIAGNOSIS: Same OPERATION: Cataract extraction using phacoemulsification with posterior chamber intraocular lens implant, left eye. IOL: IOL [employer] Buffer/Model: Teddy Clareon [id number] IOL Power: + 18.5 diopters IOL Serial Number: [id number] Optic Diameter: 6.0mm Haptic/Overall Diameter: 13.0mm PHACO INFO: Teddy appssavvyurion Vision System with OZil and Active Fluidics Cumulative Dispersed Energy (CDE): 4.24 seconds SURGEON: Jeramie Bridges MD, PILI ANESTHESIA: Monitored Anesthesia Care (MAC), with local sub-tenon's anesthetic infiltration COMPLICATIONS: None SPECIMENS: None INDICATIONS FOR PROCEDURE: Patient is a 74-year-old lady with history of diminished visual acuity in her left eye secondary to the development of nuclear/cortical/posterior subcapsular cataract. She is significantly symptomatic that she desires cataract surgery and attempt to improve and maximize her vision. The option of cataract surgery was offered to the patient and she wished to proceed. See office notes for detailed information. PROCEDURE: The correct surgical eye was identified and marked as the left eye and the pupil was dilated in the preoperative area using mydriatics and cycloplegics. The dilated pupil size was 7.0 mm. The patient elected to proceed without oral sedation. The patient was brought to the operating room where cardiopulmonary monitoring was instituted and surgical time-out was performed, confirming the correct operative eye and IOL power. Topical anesthesia was administered and ophthalmic povidone-iodine 5% was instilled into the conjunctival fornices. The wesley-ocular area was prepped with Betadine 10% solution and draped in the usual sterile fashion for intraocular surgery, including an aperture drape. A Tegaderm transparent film dressing was cut in half and used to cover the lashes and lid margins. Care was taken to sequester the lashes and lid margins under the Tegaderm dressing. A lid speculum was placed between the lids of the operative eye and the Teddy Lux[employer] Revalia operating microscope was maneuvered into position. Deirdre scissors were then used to make a conjunctival buttonhole approximately 6mm posterior to the limbus in the inferonasal quadrant. Blunt dissection was carried out to expose bare sclera, and a blunt-tipped sub-tenon?s anesthesia cannula was introduced and passed posteriorly along the globe where non-preserved plain lidocaine was injected into posterior sub-Tenon?s space. A sideport knife was used to make a paracentesis port. Intraocular phenylephrine/lidocaine was injected into the anterior chamber. The anterior chamber was then filled with viscoelastic. A keratome knife was used construct a two-plane clear corneal tunnel extending 2.0mm into clear cornea. A flap was raised on the anterior capsule and capsulorhexis forceps were used to complete a continuous curvilinear capsulorhexis of 5.5 mm. Balanced salt solution was then used to perform cortical cleaving hydrodissection and nuclear hydrodelineation until the lens could be freely rotated within the capsular bag. The lens nucleus was then disassembled and removed within the capsular bag and iris plane using phacoemulsification. Residual cortical material was removed using the irrigation/aspiration handpiece. The posterior capsule was carefully polished to remove as much residual lens epithelial cells as safely possible. The capsular bag was then inflated and the anterior chamber deepened with viscoelastic. The lens implant described above was inserted into the capsular bag using the Teddy Autonome Injector. A Kuglen hook was used to dial the IOL into position. Residual viscoelastic was then removed first from posterior to the IOL, then from the anterior chamber using the I/A handpiece. The lens implant was noted to center nicely within the capsular bag. The incisions were stromally hydrated, and the anterior chamber was reformed using BSS. Then 0.5cc of moxifloxacin 1.0mg/ml were injected into the capsular bag and anterior chamber. The incisions were checked with a Weck spear and found to be secure. Several drops of ophthalmic povidone-iodine 5% were then applied to the eye followed by two drops of combination steroid/NSAID/antibiotic solution. The drapes were removed and a clear plastic protective eye shield was placed over the eye. The patient was then returned to Same Day Surgery in stable condition. Date of Procedure: 12/29/24
--- NOTE | 2024-12-29 10:44 | W.ANESPOSTOP ---
Postoperative Evaluation Date, Time and Location Date Performed: 12/29/24 Time Performed: 10:44 Patient Location: Day Surgery Unit Vital Signs Most Recent Imported Vital Signs: Most Recent Vital Signs Temp Pulse Resp BP Pulse Ox 36 C L 54 L 16 119/72 98 12/29/24 10:37 12/29/24 10:37 12/29/24 10:37 12/29/24 10:37 12/29/24 10:37 Pain Score Most Recent Pain Score: Most Recent Pain Score Pain Level 0 12/29/24 10:37 Assessment Mental Status: Awake (Alert & Oriented to Patient Baseline) Airway and Respiratory Function: Patent airway with normal (patient baseline) respiratory exam Cardiovascular Function: Hemodynamically Stable Hydration Status: Adequately Hydrated Nausea & Vomiting: No Nausea or Vomiting Pain: Pt. Denies Any Pain Peripheral Nerve Block: Patient did not receive a nerve block
== END 2024-12-29 11:01 | disposition home or self-care (01) ==
LOC: SUR 08:06
PROVIDERS: PCP Nurse Practitioner Family; Visit Provider Ophthalmology
PROC: (CPT 66984; principal; 2024-12-29 10:30)
DX: H25.042 Posterior subcapsular polar age-related cataract, left eye (principal); H25.012 Cortical age-related cataract, left eye; H25.12 Age-related nuclear cataract, left eye
CPT/HCPCS: 66984; 00123; V2632; J2003

== ENCOUNTER 2025-01-12 11:45 | Day surgery (SDC) | payer MEDICARE, SELFPAY ==
[2025-01-12 12:22] VITALS: BP 138/69; PULSE 62; RESP 16; TEMP 36.3; O2SAT 98
[2025-01-12] MEDS: Tropicam./Phenyleph. (1/2.5%) 5 ML BTL ×3 (12:25→12:40)
--- NOTE | 2025-01-12 13:31 | ANES.PREOP_ITS ---
General Info Date of Service Date Performed: 01/12/25 Height: 5 ft 4 in Weight: 112.5 kg Body Mass Index (BMI): 42.5 Surgical Procedure: Operation Date: 01/12/25 12:55 Proposed Procedure Side Surgeon p Cataract Extraction with IOL Implant Right Jeramie Bridges MD Meds Allergies and Home Medications Allergies Allergy/AdvReac Type Severity Reaction Status Date / Time No Known Allergies Allergy Verified 01/12/25 12:28 Home Medication ?Medication ?Instructions ?Recorded chlorthalidone 25 mg tablet 25 mg PO DAILY 08/05/23 lisinopril 30 mg tablet 30 mg PO HS 08/05/23 lovastatin 20 mg tablet 20 mg PO HS 08/05/23 acetaminophen 500 mg tablet 1,000 mg (2 x 500 mg) PO Q 8H PRN 11/30/23 pain #90 tabs calcium carbonate (Calcium 600) 600 mg PO DAILY vitamin E 670 mg (1,000 unit) 670 mg PO DAILY 12/28/24 capsule Current Visit Medications: Current Medications Generic Name Dose Route Start Last Admin Trade Name Freq PRN Reason Stop Dose Admin Acetaminophen 1,000 mg 01/12/25 06:00 Acetaminophen 500 Mg Tab PO 02/11/25 05:59 Q4H PRN PRN Balanced Salt Solution 500 ml 01/12/25 06:00 Balanced Salt Soln.-Plus 500 Ml Bag OP 02/11/25 05:59 DIRECTED FOR[facility]LY [facility] Miscellaneous Medication 0 ml 01/12/25 06:00 Prednisolone 1%, Moxifloxacin 0.5%, Bromfenac 0.09% 5.6ml Btl OD 02/11/25 05:59 DIRECTED [facility] Miscellaneous Medication 0 ml 01/12/25 06:00 Tropicam./Phenyleph. (1/2.5%) 5 Ml Btl OD 02/11/25 05:59 DIRECTED KATHERIN Tetracaine HCl 0 ml 01/12/25 06:00 Tetracaine 0.5% 4 Ml Btl OD 02/11/25 05:59 DIRECTED KATHERIN PFSH Active Problems Active Problems: Problem Status Onset Code Cortical age-related cataract, right eye Acute H25.011 Nuclear age-related cataract, right eye Acute H25.11 Posterior subcapsular age-related cataract of left eye Resolved H25.042 Cortical age-related cataract, left eye Resolved H25.012 Nuclear age-related cataract, left eye Resolved H25.12 Left lumbar radiculopathy Acute M54.16 Strain of gastrocnemius muscle of left lower extremity Acute S86.112A History of total left knee replacement Acute 11/30/23 Z96.652 Obesity Chronic E66.9 Hyperlipidemia Acute E78.5 Medical History Medical History History of echocardiogram Hypertensive disorder Chronic constipation Surgical History Surgical History Hx of appendectomy H/O: hysterectomy History of back surgery Per H&P laminotomy Hx of total knee replacement Status post hysterectomy History of arthroscopic knee surgery Left Tobacco Smoking/Tobacco Use Status: Former Tobacco Use Passive smoking exposure: No Alcohol Alcohol Intake: current Alcohol intake frequency: holidays/special occasions only Alcohol type: other Substance Use Substance use: Never Substance use type: does not use Vital Signs and Lab Results Vital Signs Most Recent Vital Signs in EMR: Most Recent Vital Signs Temp Pulse Resp BP Pulse Ox 36.3 C L 62 16 138/69 98 01/12/25 12:22 01/12/25 12:22 01/12/25 12:22 01/12/25 12:22 01/12/25 12:22 Anesthesia Assessment and Plan Anesthesia History Personal History: No History of Anesthesia Complications Family History: No Family History of Anesthesia Complications Exercise Tolerance Exercise Tolerance: Metabolic Equivalents<4 Pertinent Negatives Pertinent Negatives: No Major Cardiovascular Symptoms or Complaints and No Major Pulmonary Symptoms or Complaints Cardiac & Pulmonary Exam Cardiac Exam: Normal S1/S2 Heart Sounds Pulmonary Exam: Clear Bilateral Breath Sounds Implantable Cardiac Device Does patient have a Pacemaker or an ICD?: No Airway Exam Known Difficult Airway: No Mallampati Class: 2 Mouth Opening: Normal (> 3cm) Thyromental Distance: Less than 3 cm Neck Range of Motion: Full ROM Neck Circumference: Thick Teeth Condition: Removable Dentures/Plates Upper and Removable Dentures/Plates Lower ASA Classification ASA Score: ASA 3 Emergency Case?: No NPO Status NPO Status: NPO Clears >2 hours, Solids >8 hours Anesthesia Plan Resuscitation Status: Full Code Anesthesia Technique: MAC Anesthesia Airway Planned: Natural Airway Monitors Used: Standard Monitors
[2025-01-12 13:33] VITALS: BMI 42.5
[2025-01-12] MEDS: Prednisolone 1%, Moxifloxacin 0.5%, Bromfenac 0.09% 5.6ML BTL 5.6 ML (13:53)
[2025-01-12] MEDS: Tetracaine 0.5% 4 ML BTL (13:54)
[2025-01-12] MEDS: Duovisc Viscoelastic System EACH 1 EACH (13:54)
[2025-01-12] MEDS: Moxifloxacin-PF 1 MG/ML VIAL (13:55)
[2025-01-12] MEDS: Phenylephrine/Lidocaine (15/10) MG/ML 1 ML VIAL (13:55)
[2025-01-12] MEDS: Lidocaine 1% Pres-Free 5 ML VIAL (13:55)
[2025-01-12] MEDS: Balanced Salt Soln.-PLUS 500 ML BAG OP (13:56)
[2025-01-12] MEDS: Povidone-Iodine Ophth 30 ML BTL (13:56)
[2025-01-12 14:12] VITALS: BP 136/72; PULSE 54; RESP 16; TEMP 36.2; O2SAT 98
--- NOTE | 2025-01-12 14:12 | W.PM.DSUDISC ---
Date of service: 01/12/25 Discharge Plan Disposition Patient Disposition: Home Discharge Details Attending Provider: Jeramie Bridges Primary Care Provider: Armen Orellana Home Meds and New Rx's Prescriptions: No Action chlorthalidone 25 mg tablet 25 mg PO DAILY lisinopril 30 mg tablet 30 mg PO HS lovastatin 20 mg tablet 20 mg PO HS acetaminophen 500 mg tablet 1,000 mg PO Q8H PRN Qty: 90 0RF Rx Instructions: Take two tablets up to every 8 hours as needed for pain calcium carbonate [Calcium 600] 600 mg calcium (1,500 mg) tablet 600 mg PO DAILY vitamin E 670 mg (1,000 unit) capsule 670 mg PO DAILY Discharge Instructions Stand Alone Forms: [facility] Post-Op Adam Adams ([facility]) Discharge Orders Discharge Orders: Discharge Order (Routine); Ordered 01/12/25 Ordered By: Jeramie Bridges DS: Diagnosis Discharge Diagnosis (1) Cortical age-related cataract, right eye: Status: Resolved (2) Nuclear age-related cataract, right eye: Status: Resolved
--- NOTE | 2025-01-12 14:12 | W.PM.OP ---
Operative Note Operative Note PRE-OP DIAGNOSIS: Nuclear/cortical cataract, right eye POST-OP DIAGNOSIS: same PROCEDURE: Cataract extraction using phacoemulsification with intraocular lens implant, right eye SURGEON: Jeramie Bridges ANESTHESIA TYPE: Local By Surgeon and MAC Refer to Anesthesia Record ESTIMATED BLOOD LOSS: 0 PATHOLOGY: none sent COMPLICATIONS: None Patient was transported to: same day Patient's condition: stable Implants: Teddy Clareon [id number] Indications: Progressive decreased vision due to cataract, right eye Procedure Description: CATARACT SURGERY OPERATIVE REPORT PREOPERATIVE DIAGNOSIS: Nuclear/cortical cataract, right eye POSTOPERATIVE DIAGNOSIS: Same OPERATION: Cataract extraction using phacoemulsification with posterior chamber intraocular lens implant, right eye. IOL: IOL [employer]/Model: Teddy Clareon [id number] IOL Power: + 19.5 diopters IOL Serial Number: [id number] Optic Diameter: 6.0mm Haptic/Overall Diameter: 13.0mm PHACO INFO: Teddy Centurion Vision System with OZil and Active Fluidics Cumulative Dispersed Energy (CDE): 6.38 seconds SURGEON: Jeramie Bridges MD, PILI ANESTHESIA: Monitored Anesthesia Care (MAC), with local sub-tenon's anesthetic infiltration COMPLICATIONS: None SPECIMENS: None INDICATIONS FOR PROCEDURE: The patient is a 74-year-old lady with history of progressive decreased vision in both eyes secondary to the development of bilateral nuclear/cortical cataract. She has already undergone cataract surgery in the left eye and is doing well postoperatively. She now presents for cataract surgery in the right eye. See office notes for detailed information. PROCEDURE: The correct surgical eye was identified and marked as the right eye and the pupil was dilated in the preoperative area using mydriatics and cycloplegics. The dilated pupil size was 7.0 mm. The patient elected to proceed without oral sedation. The patient was brought to the operating room where cardiopulmonary monitoring was instituted and surgical time-out was performed, confirming the correct operative eye and IOL power. Topical anesthesia was administered and ophthalmic povidone-iodine 5% was instilled into the conjunctival fornices. The wesley-ocular area was prepped with Betadine 10% solution and draped in the usual sterile fashion for intraocular surgery, including an aperture drape. A Tegaderm transparent film dressing was cut in half and used to cover the lashes and lid margins. Care was taken to sequester the lashes and lid margins under the Tegaderm dressing. A lid speculum was placed between the lids of the operative eye and the Teddy Lux[employer] Revalia operating microscope was maneuvered into position. Deirdre scissors were then used to make a conjunctival buttonhole approximately 6mm posterior to the limbus in the inferonasal quadrant. Blunt dissection was carried out to expose bare sclera, and a blunt-tipped sub-tenon?s anesthesia cannula was introduced and passed posteriorly along the globe where non-preserved plain lidocaine was injected into posterior sub-Tenon?s space. A sideport knife was used to make a paracentesis port. Intraocular phenylephrine/lidocaine was injected into the anterior chamber. The anterior chamber was then filled with viscoelastic. A keratome knife was used to construct a two--plane clear corneal tunnel extending 2.0mm into clear cornea. A flap was raised on the anterior capsule and capsulorhexis forceps were used to complete a continuous curvilinear capsulorhexis of 5.5 mm. Balanced salt solution was then used to perform cortical cleaving hydrodissection and nuclear hydrodelineation until the lens could be freely rotated within the capsular bag. The lens nucleus was then disassembled and removed within the capsular bag and iris plane using phacoemulsification. Residual cortical material was removed using the I/A handpiece. The posterior capsule was carefully polished to remove as much residual lens epithelial cells as safely possible. The capsular bag was then inflated and the anterior chamber deepened with cohesive viscoelastic. The lens implant described above was inserted into the capsular bag using the Teddy Autonome Injector. A Kuglen hook was used to dial the IOL into position. Residual viscoelastic was then removed first from posterior to the IOL, then from the anterior chamber using the I/A handpiece. The lens implant was noted to center nicely within the capsular bag. The incisions were stromally hydrated, and the anterior chamber was reformed using BSS. Then 0.5cc of moxifloxacin 1.0mg/ml were injected into the capsular bag and anterior chamber. The incisions were checked with a Weck spear and found to be secure. Several drops of ophthalmic povidone-iodine 5% were then applied to the eye followed by two drops of combination steroid/NSAID/antibiotic solution. The drapes were removed and a clear plastic protective eye shield was placed over the eye. The patient was then returned to Same Day Surgery in stable condition. Date of Procedure: 01/12/25
--- NOTE | 2025-01-12 15:21 | W.ANESPOSTOP ---
Postoperative Evaluation Date, Time and Location Date Performed: 01/12/25 Time Performed: 14:14 Patient Location: Day Surgery Unit Vital Signs Most Recent Imported Vital Signs: Most Recent Vital Signs Temp Pulse Resp BP Pulse Ox 36.2 C L 54 L 16 136/72 98 01/12/25 14:12 01/12/25 14:12 01/12/25 14:12 01/12/25 14:12 01/12/25 14:12 Pain Score Most Recent Pain Score: Most Recent Pain Score Pain Level 0 01/12/25 14:12 Assessment Mental Status: Awake (Alert & Oriented to Patient Baseline) Airway and Respiratory Function: Patent airway with normal (patient baseline) respiratory exam Cardiovascular Function: Hemodynamically Stable Hydration Status: Adequately Hydrated Nausea & Vomiting: No Nausea or Vomiting Pain: Pt. Denies Any Pain Peripheral Nerve Block: Other (Local by Dr. Bridges)
== END 2025-01-12 14:35 | disposition home or self-care (01) ==
LOC: SUR 11:46
PROVIDERS: PCP Nurse Practitioner Family; Visit Provider Ophthalmology
PROC: (CPT 66984; principal; 2025-01-12 12:45)
DX: H25.011 Cortical age-related cataract, right eye (principal); H25.11 Age-related nuclear cataract, right eye; Z98.42 Cataract extraction status, left eye
CPT/HCPCS: 66984; 00123; V2632; J2003